=== PATIENT | female | born 1960 | race Caucasian/White ===

== ENCOUNTER → 2016-10-12 | Outpatient (CLI) | payer OTHER, BC | LOC: RAD 15:27 | PROVIDERS: ATTEND Otolaryngology | DX: H90.42 Sensorineural hearing loss, unilateral, left ear, with unrestricted hearing on the contralateral side (principal) | CPT/HCPCS: 82565; 70553; A9577 ==

== ENCOUNTER → 2017-08-28 | Outpatient (CLI) | payer OTHER, BC ==
--- NOTE | 2017-08-29 12:34 | WOMENS IMAGING REPORT ---
EXAM DESCRIPTION: BILAT SCREENING MAMMO W/CAD COMPLETED DATE/TIME: 08/28/2017 4:07 pm REASON FOR STUDY: ROUTINE SCREENING; Z12.31 Z12.31 ENCNTR SCREEN MAMMOGRAM FOR MALIGNANT NEOPLASM O F ELIZABETH COMPARISON: 02/24/2015 and 12/14/2008. TECHNIQUE: Standard craniocaudal and mediolateral oblique views of each breast recorded using digita l acquisition. LIMITATIONS: None. FINDINGS: No masses, calcifications or architectural distortion. No areas of suspicion. Read with the assistance of CAD. .[facility] - R2 Cenova Version 1.3 .[facility] Imaging - R2 Cenova Version 1.3 .[facility] - R2 Cenova Version 2.4 .[facility] [place] R2 Cenova Version 2.4 .[facility] - R2 Lumber Sticker Version 9.2 IMPRESSION: NORMAL MAMMOGRAM. BIRADS 1. BREAST DENSITY: b. There are scattered areas of fibroglandular density. BIRAD: 1 NEGATIVE RECOMMENDATION: ROUTINE SCREENING COMMENT: The patient has been notified of the results by letter per MQSA requirements. Additional no tification policies are in place for contacting patient with suspicious or incomplete findings. Quality ID #225: The [employer] recommends an annual screening mammogram for women aged 40 years or over. This facility utilizes a reminder system to ensure that all patients receive reminder letters, and/or direct phone calls for appointments. This includes reminders for routine scr eening mammograms, diagnostic mammograms, or other Breast Imaging Interventions when appropriate. Th is patient will be placed in the appropriate reminder system. The [employer] (ACR) has developed recommendations for screening MRI of the breast s in certain patient populations, to be used in conjunction with mammography. Breast MRI surveillanc e may be appropriate for women with more than 20% lifetime risk of developing breast cancer as deter mined by genetic testing, significant family history of the disease, or history of mantle radiation f or Hodgkins Disease. ACR Practice Guidelines 2008. TECHNICAL DOCUMENTATION: FINDING NUMBER: (1) ASSESSMENT: (1) JOB ID: [id number] [employer]- All Rights Reserved Reading location - IP/workstation name: [facility]
== END ==
LOC: WI 15:25
PROVIDERS: ATTEND Physician Assistant Medical
DX: Z12.31 Encounter for screening mammogram for malignant neoplasm of breast (principal); E11.65 Type 2 diabetes mellitus with hyperglycemia
CPT/HCPCS: 77067

== ENCOUNTER → 2020-03-19 | Outpatient (CLI) | payer OTHER, BC ==
[2020-03-19 17:42] LABS: ABSOLUTE LYMPHOCYTES (AUTO) 2.1 10^3/uL (0.5-4.7); ABSOLUTE MONOCYTES (AUTO) 0.4 10^3/uL (0.1-1.4); ABSOLUTE NEUT (AUTO) 3.2 10^3/uL (1.7-8.2); BASOPHILS % (AUTO) 0.8 % (0-2); EOSINOPHILS % (AUTO) 0.7 % (0-6); HEMATOCRIT 46.7 % (36.0-47.0); HEMOGLOBIN 15.9 g/dL (12.0-15.5); LYMPHOCYTES % (AUTO) 36.2 % (13-45); MEAN CORPUSCULAR HEMOGLOBIN 32.6 pg (27.0-33.4); MEAN CORPUSCULAR VOLUME 96 fl (80-97); MONOCYTES % (AUTO) 6.4 % (3-13); PLATELET COUNT 173 10^3/uL (150-450); RED BLOOD COUNT 4.86 10^6/uL (3.72-5.28); RED CELL DISTRIBUTION WIDTH 12.5 % (11.5-14.0); SEGMENTED NEUTROPHILS % (AUTO) 55.9 % (42-78); TOTAL CELLS COUNTED % (AUTO) 100 %; WHITE BLOOD COUNT 5.8 10^3/uL (4.0-10.5)
== END ==
LOC: OD 17:07
PROVIDERS: ATTEND Nurse Practitioner Family
DX: K92.1 Melena (principal); R53.82 Chronic fatigue, unspecified; E03.9 Hypothyroidism, unspecified
CPT/HCPCS: 36415; 82652; 84436; 84443; 84480; 85025

== ENCOUNTER 2020-05-05 07:00 | Day surgery (SDC) | payer OTHER, BC ==
[2020-05-05] MEDS ORDERED: PROPOFOL INJ 200 MG/20 ML VIAL IV ONE (07:39)
--- NOTE | 2020-05-05 08:13 | Operative Report ---
Operative Report DATE OF SURGERY: 05/05/20 Operative Report: The risk, benefits and alternatives of the procedure including the risks of bleeding, perforation requiring surgery have been explained to the patient in detail and informed consent has been obtained. Patient is taken back to the endoscopy suite and placed in left, lateral decubital position. Timeout was called. Propofol medication is administered. Rectal examination is done which did not reveal any masses, tears or fissures. An Olympus videoscope is introduced into the patient's rectum. Scope was then carefully advanced all the way to the cecum. Cecum was identified by the usual anatomical landmarks including the ileocecal valve as well as the appendiceal office. Prep was good. Scope was then sequentially pulled back via the various segments of the colon including the ascending colon, hepatic flexure, transverse colon, splenic flexure, descending colon and finally into the rectosigmoid portions of the colon. Retroflexion maneuver is performed. PREOPERATIVE DIAGNOSIS: Change in bowel habits, colorectal cancer screening POSTOPERATIVE DIAGNOSIS: No obstructive lesions noted in the colon. Internal hemorrhoids OPERATION: Diagnostic colonoscopy SURGEON: SANDRITA ROSE ANESTHESIA: LMAC TISSUE REMOVED OR ALTERED: None. COMPLICATIONS: None. ESTIMATED BLOOD LOSS: As noted above. INTRAOPERATIVE FINDINGS: As noted above. PROCEDURE: Patient tolerated the procedure well. No immediate postprocedure complications are noted. Patient is discharged in good condition. Discharge date 05/05/2020 Discharge diet: Regular. Discharge activity: Regular. 2 to 3-week follow-up to discuss findings. Patient is instructed call the office or proceed to the emergency room should there be any further problems or questions.
[2020-05-05 08:39] VITALS: BP 117/65
--- OUTSIDE RECORDS SUMMARY | 2020-05-06 17:55 | XMS REPORT ---
:1960 Author Organization [facility] Address [facility] [address] [place] [address] Care Team Providers Name Role Phone Dylan Attending Clinician Unavailable Dwaine Attending Clinician Unavailable Allergies, Adverse Reactions, Alerts This patient has no known allergies or adverse reactions. Medications This patient has no known medications. Problems This patient has no known problems. Procedures Procedure Date / Time Performed Performing Clinician Devic e OFFICE/OUTPATIENT VISIT EST 2020-03-19 16:00:00 PREV VISIT EST AGE 40-64 2019-01-28 10:30:00 Results Test Description Test Time Test Comments Text Results Atomic Results Result Comments [facility] 2019 CORONAVIRUS SWETHA PANEL\S\ 2020-04-29 14:25:00 Test Item Value Reference Range Comments [facility] 2019 NOVEL CORONAVIRUS SWETHA (test code = [id number]) N ot Detected Not Detect [facility] CORONAVIRUS 2019 SWETHA [facility] (test code = SOURCE3) See comment THINPREP TIS AND HPV mRNA [id number] 11:24:00 Test Item Value Reference Range Comments PREV. BX: (test code = UNKNOWN 66484868) INTERPRETATION/RESULT: Negative for intraepithelial (test code = 73602795) lesion or malignancy. PREV. PAP: (test code = UNKNOWN 53817800) HPV mRNA E6/E7 (test code = Not Detected Not Detected 68809360) SOURCE: (test code = Cervix, Endocervix 84743733) LMP: (test code = 61727221) 20150625 CLINICAL INFORMATION: (test Normal exam code = 55018955) HEPATIC FUNCTION [id number] 11:22:00 Test Item Value Reference Range Comments BILIRUBIN, TOTAL (test code = 96936806) 0.7 mg/dL 0.2-1.2 ALKALINE PHOSPHATASE (test code = 51168737) 65 U/L 33-1 30 ALBUMIN (test code = 26561643) 4.5 g/dL 3.6-5.1 BILIRUBIN, INDIRECT (test code = 02821080) 0.6 mg/dL (calc) 0.2- 1.2 GLOBULIN (test code = 08429391) 2.4 g/dL (calc) 1.9-3.7 ALBUMIN/GLOBULIN RATIO (test code = 1.9 (calc) 1.0-2.5 45587996) PROTEIN, TOTAL (test code = 45671616) 6.9 g/dL 6.1-8.1 BILIRUBIN, DIRECT (test code = 54882128) 0.1 mg/dL < OR = 0.2 ALT (test code = 76703661) 22 U/L 6-29 AST (test code = 67160981) 23 U/L 10-35 CBC (INCLUDES DIFF/PLT)2019-01-28 11:22:00 Test Item Value Reference Range Comments EOSINOPHILS (test code = 56456149) 1.1 % MCHC (test code = 97788797) 33.3 g/dL 32.0-36.0 LYMPHOCYTES (test code = 11024226) 29.0 % RDW (test code = 82119691) 11.9 % 11.0-15.0 MPV (test code = 70480103) 10.6 fL 7.5-12.5 ABSOLUTE MONOCYTES (test code = 96456417) 403 cells/uL 200-95 0 ABSOLUTE NEUTROPHILS (test code = 09984519) 3472 cells/uL 1500 -7800 MONOCYTES (test code = 09063366) 7.2 % MCH (test code = 32498502) 32.3 pg 27.0-33.0 MCV (test code = 03885056) 97.2 fL 80.0-100.0 WHITE BLOOD CELL COUNT (test code = 5.6 Thousand/uL 3.8-10.8 86980540) ABSOLUTE LYMPHOCYTES (test code = 99892910) 1624 cells/uL 850- 3900 HEMATOCRIT (test code = 70898061) 45.1 % 35.0-45.0 HEMOGLOBIN (test code = 88133065) 15.0 g/dL 11.7-15.5 NEUTROPHILS (test code = 29621147) 62 % BASOPHILS (test code = 17859509) 0.7 % ABSOLUTE BASOPHILS (test code = 75845254) 39 cells/uL 0-200 RED BLOOD CELL COUNT (test code = 34020412) 4.64 Million/uL 3.80 -5.10 PLATELET COUNT (test code = 57928391) 166 Thousand/uL 140-400 ABSOLUTE EOSINOPHILS (test code = 16431656) 62 cells/uL 15-5 00 LIPID PANEL, [id number] 11:22:00 Test Item Value Reference Range Comments HDL CHOLESTEROL (test code = 24539277) 74 mg/dL >50 CHOLESTEROL, TOTAL (test code = 35074122) 184 mg/dL <200 CHOL/HDLC RATIO (test code = 44604879) 2.5 (calc) <5.0 NON HDL CHOLESTEROL (test code = 73061963) 110 mg/dL (calc) <130 TRIGLYCERIDES (test code = 09174985) 79 mg/dL <150 LDL-CHOLESTEROL (test code = 20842874) 93 mg/dL (calc) COMPREHENSIVE METABOLIC [id number] 11:22:00 Test Item Value Reference Range Comments UREA NITROGEN (BUN) (test code = 13 mg/dL 7-25 31680640) PROTEIN, TOTAL (test code = 88676032) 6.9 g/dL 6.1-8.1 BUN/CREATININE RATIO (test code = NOT APPLICABLE (calc) 6-22 70933026) ALKALINE PHOSPHATASE (test code = 65 U/L 33-130 67709272) POTASSIUM (test code = 19883963) 4.1 mmol/L 3.5-5.3 GLOBULIN (test code = 26395829) 2.4 g/dL (calc) 1.9-3.7 eGFR (test code = 98 mL/min/1.73m2 > OR = 60 19038816) ALBUMIN/GLOBULIN RATIO (test code = 1.9 (calc) 1.0-2.5 89845032) CREATININE (test code = 11174941) 0.78 mg/dL 0.50-1.05 GLUCOSE (test code = 35402669) 85 mg/dL 65-99 SODIUM (test code = 30577214) 142 mmol/L 135-146 CARBON DIOXIDE (test code = 11723063) 28 mmol/L 20-32 CHLORIDE (test code = 93688051) 104 mmol/L 98-110 ALT (test code = 54104534) 22 U/L 6-29 AST (test code = 18364718) 23 U/L 10-35 eGFR NON-AFR. MARTINIQUAIS (test code = 84 mL/min/1.73m2 > OR = 60 09465385) ALBUMIN (test code = 30781420) 4.5 g/dL 3.6-5.1 CALCIUM (test code = 50062766) 9.5 mg/dL 8.6-10.4 BILIRUBIN, TOTAL (test code = 0.7 mg/dL 0.2-1.2 89156295) TSH W/REFLEX TO [id number] 11:22:[id number] 16:57:003.26 Assessments Condition Name Status Diagnosis Date Treating Clinici an Headache Active Chronic fatigue, unspecified Active Melena Active Hypothyroidism, unspecified Active Encounter for screening for lipoid disorders Active Encntr screen for dis of the bld/bld-form Active org/immun mechnsm Encounter for oth screening for malignant Active neoplasm of breast Encntr for measuring machine tender exam (general) (routine) w/o Active abn findings Encounters Start End Encounter Admission Attending Care Care Encounter Date/Time Date/Time Type Type Clinicians Facility Department ID 2020-03-19 2020-03-[address] [facility] 6 [id number] 16:00:00 16:00:00 [facility] [id number] s [id number] and [id number], 2019-01-28 2019-01-[address] [facility] E [id number] 10:30:00 10:30:00 [facility] [id number] and [id number] Multispecialty [id number] Clini Social History This patient has no known social history. Vital Signs This patient has no known vital signs.
--- NOTE | 2020-05-07 09:48 | Progress Note ---
Provider Note Provider Note: This is an addendum to previously dictated colonoscopy note 10-year surveillance colonoscopy.
== END 2020-05-05 08:55 | disposition home or self-care (01) ==
LOC: END 07:00
PROVIDERS: ATTEND Internal Medicine Gastroenterology
DX: K64.8 Other hemorrhoids (principal); K59.00 Constipation, unspecified; E03.9 Hypothyroidism, unspecified; Z80.0 Family history of malignant neoplasm of digestive organs; Z03.818 Encounter for observation for suspected exposure to other biological agents ruled out; Z85.828 Personal history of other malignant neoplasm of skin; Z79.890 Hormone replacement therapy; Z78.0 Asymptomatic menopausal state
CPT/HCPCS: 45378; U0003; J2704; C9803; 812; 87635